=== PATIENT | female | born 1990 | race Caucasian/White ===

== ENCOUNTER 2020-07-11 19:35 | Emergency (ER) | payer SELFPAY ==
[~2020-07-11] VITALS: Ht 162.6 cm; Wt 90.9 kg
[2020-07-11 19:52] VITALS: TEMP 98.7
[2020-07-11] MEDS ORDERED: PREDNISONE20 MG PO (20:10)
[2020-07-11 20:35] VITALS: BP 132/71; PULSE 79
== END 2020-07-11 20:36 | disposition home or self-care (01) ==
LOC: COL.ER 19:35
DX: S00.562A Insect bite (nonvenomous) of oral cavity, initial encounter (principal); W57.XXXA Bitten or stung by nonvenomous insect and other nonvenomous arthropods, initial encounter
CPT/HCPCS: J7512